=== PATIENT | female | born 1960 | race Caucasian/White ===

== ENCOUNTER 2020-10-12 09:43 | Observation (INO) ==
--- NOTE | 2020-10-12 10:16 | Emergency Department Note ---
History of Present Illness General Chief complaint: Illness Stated complaint: chest pressure, down arms, legs, pain down legs, Time Seen by Provider: 10/12/20 09:53 Source: patient History of Present Illness Provider complaint: Chest pain Onset (ago): day(s) 8 Location: chest Radiation: neck and extremity (Both arms) Pain Consistency: + intermittent Maximum Pain Intensity: 5 Quality: + burning (And heavy) Relieved By: + none Exacerbated By: + other (Going to bed) Associated symptoms: + nausea/vomiting (Nausea no vomiting) and + weakness (Generalized); no cough, no fever/chills and no shortness of breath This is a 60-year-old female who presents with chest discomfort intermittently for the past 8 days. She states that she gets it when she goes to bed and it wakes her up from sleep throughout the night. Last night she had it starting at around midnight when she went to bed and it was intermittent all night until about 7:00. She no longer has any chest discomfort. She describes it as a burning and heaviness in her chest which radiates to her neck as well as both of her arms. It is associated with nausea and generalized weakness but no shortness of breath. She does state that she went to [facility] where they did an EKG and blood work and chest x-ray. They told her that it was probably anxiety. She was also seen here 2 days ago and had a similar work-up and was told that it was probably related to her stomach. She states that she has been feeling weak for the past 8 days and has been mostly bedridden. She states that over the past 2 days she has noticed pain to her left calf and thigh without any appreciable swelling. She did state that she fell 2 weeks ago and injured her metz but only developed this pain 2 days ago. She states her chest pain is not related to exertion. When she climbs a flight of stairs she will get slightly short of breath but have no chest discomfort. She occasionally gets it during the day but it is mostly at nighttime when she goes to bed. She denies any cardiac history other than a history of PVCs. She is currently on beta-blockers for this. She also has hypertension. Her parents both had heart problems but in their 70s. She stated she tried to follow-up with her doctor but only was able to talk to her on the phone and told her to go to the ER. Home Medications Medication Instructions Recorded Confirmed Type acebutolol 200 mg PO BID 01/19/19 10/12/20 History aspirin [Aspir-81] 81 mg PO HS 10/10/20 10/12/20 History hydroxyzine HCl 10 mg PO TID PRN 10/10/20 10/12/20 History lisinopril 10 mg PO HS 10/10/20 10/12/20 History omeprazole 40 mg PO BID #30 cap 10/10/20 10/12/20 Rx sertraline 50 mg PO HS 10/10/20 10/12/20 History cholecalciferol (vitamin D3) 0 mcg PO DAILY 10/12/20 10/12/20 History [Vitamin D3] elderberry fruit [Elderberry] 200 mg PO DAILY 10/12/20 10/12/20 History Allergies Allergy/AdvReac Type Severity Reaction Status Date / Time metoprolol Allergy Intermediate THROAT Verified 10/12/20 10:56 TIGHT, ITCHY HIVES. moxifloxacin [From Avelox] AdvReac Severe Throat Unverified 10/12/20 10:56 tight, itchy, hives Past Med/Surg History Medical History HTN (hypertension) Hyperlipidemia Family History Other No significant family history Social History Smoking Status: Former smoker Tobacco Type: Cigarettes marital status: Single Current Living Situation: Alone current occupational status: employed Feels Safe at Home: Yes Review of Systems See HPI for pertinent positives & negatives. and A total of 10 systems reviewed and were otherwise negative Physical Exam Vital Signs Vital Signs - 24 hr 10/12/20 09:52 10/12/20 10:50 10/12/20 11:30 Temperature 36.6 C Temperature Source Temporal Artery Scan Pulse Rate 55 L Pulse Rate [Apical] 53 L 61 Respiratory Rate 18 18 16 Respiratory Depth Normal Blood Pressure 160/102 H Blood Pressure [Right Arm] 194/121 H Blood Pressure Mean 121 Blood Pressure Mean [Right Arm] 145 Pulse Oximetry 99 96 95 Oxygen Delivery Method Room Air Room Air Room Air Sepsis Recent Fever Within 48 Hours No Sepsis New/Unexplained Change in Mental Status N/A Sepsis Action Taken by Nursing No Action Required 10/12/20 12:24 10/12/20 14:44 Temperature Temperature Source Pulse Rate Pulse Rate [Apical] 63 57 L Respiratory Rate 16 16 Respiratory Depth Blood Pressure Blood Pressure [Right Arm] 176/100 H 135/89 Blood Pressure Mean Blood Pressure Mean [Right Arm] 125 104 Pulse Oximetry 98 98 Oxygen Delivery Method Room Air Room Air Sepsis Recent Fever Within 48 Hours Sepsis New/Unexplained Change in Mental Status Sepsis Action Taken by Nursing Constitutional: Vital signs reviewed. Eyes: Pupils are equal round reactive to light. Conjunctiva are noninjected. ENT: Pharynx is clear without erythema or exudate. Mucous membranes are moist. Neck supple without meningeal signs. Respiratory: Clear to auscultation bilaterally. Breath sounds are equal bilaterally. Cardiovascular: Regular rate and rhythm. No rubs or gallops. GI: Soft, nondistended and nontender. Bowel sounds are present. Musculoskeletal: No peripheral edema. Mild left calf tenderness. Normal distal pulses. No bony tenderness to the left lower extremity. Integumentary: No cyanosis. or jaundice. Neurological: The patient is awake and alert. No focal deficits. Psychiatric: Very anxious. Course Administered Medications Discontinued Medications Ioversol (Optiray 320 125ml) 120 ml IV ONCE ONE Stop: 10/12/20 12:00 Last Admin: 10/12/20 12:00 Dose: 120 ml Documented by: [id number] Medical Decision Making Differential Diagnosis Unstable angina, [place], pulmonary embolism, DVT, GERD, anxiety Medical Records Attestation: I reviewed the patient's medical records. I did perform a limited focused review of portions of the patient's old chart on the electronic medical record. The patient was seen here 2 days ago for the same symptoms. She had an EKG, x-ray and lab work which were unremarkable. The physician who saw her felt that this was likely related to a GI issue as she has recently been on a course of Augmentin. Home Medications Current Medication List: was personally reviewed by me Laboratory Data Attestation: I reviewed the patient's lab results. Result diagrams: 10/12/20 10:57 10/12/20 10:57 Lab Results 10/12/20 10/12/20 10/12/20 Range/Units 10:57 10:57 10:57 WBC 5.48 (4.8-10.8) K/uL RBC 4.61 (4.2-5.4) M/uL Hgb 14.3 (12.0-16.0) g/dL Hct 42.0 (37-47) % MCV 91.1 (80-100) fL MCH 31.0 (25-34) pg MCHC 34.0 (32-36) g/dL RDW Std Deviation 42.3 (36.4-46.3) fL RDW Coeff of Vianca 12.6 (11.5-14.5) % Plt Count 225 (130-400) K/uL MPV 9.8 (7.4-10.4) fL Immature Gran % (Auto) 0.2 % Neut % (Auto) 71.5 % Lymph % (Auto) 21.2 % [place] % (Auto) 6.0 % Eos % (Auto) 0.7 % Baso % (Auto) 0.4 % Neut # (Auto) 3.92 (1.4-6.5) K/uL Lymph # (Auto) 1.16 L (1.2-3.4) K/uL [place] # (Auto) 0.33 (0.11-0.59) K/uL Eos # (Auto) 0.04 (0-0.5) K/uL Baso # (Auto) 0.02 (0-0.2) K/uL Immature Gran # (Auto) 0.01 (0.00-0.02) K/uL PT 10.1 (9.0-12.0) Seconds INR 1.0 (0.9-1.1) APTT 23.6 (21.0-31.0) Seconds PTT Ratio 0.9 D-Dimer 850 H* (0-500) ug/L FEU Sodium 141 (136-145) mmol/L Potassium 3.6 (3.5-5.1) mmol/L Chloride 109 H (98-107) mmol/L Carbon Dioxide 27 (21-32) mmol/L Anion Gap 5.0 (3-11) BUN 9 (7-18) mg/dl Creatinine 0.75 (0.6-1.2) mg/dl Est Cr Clr Drug Dosing 95.0 ml/min Est GFR ( Amer) 101.1 Est GFR (Non-Af Amer) 87.2 BUN/Creatinine Ratio 11.5 (10-20) Glucose 103 H (70-99) mg/dl Calcium 9.4 (8.5-10.1) mg/dl Total Bilirubin 0.6 (0.2-1) mg/dl AST 8 L (15-37) U/L ALT 24 (12-78) U/L Alkaline Phosphatase 88 (45-117) U/L Troponin I < 0.015 (0-0.045) ng/ml Total Protein 7.1 (6.4-8.2) gm/dl Albumin 4.0 (3.4-5.0) gm/dl Globulin 3.1 (2.5-4.0) gm/dl Albumin/Globulin Ratio 1.3 (0.9-2) Lipase 102 (73-393) U/L COVID-19 Eval Order 10/12/20 Range/Units 15:00 WBC (4.8-10.8) K/uL RBC (4.2-5.4) M/uL Hgb (12.0-16.0) g/dL Hct (37-47) % MCV (80-100) fL MCH (25-34) pg MCHC (32-36) g/dL RDW Std Deviation (36.4-46.3) fL RDW Coeff of Vianca (11.5-14.5) % Plt Count (130-400) K/uL MPV (7.4-10.4) fL Immature Gran % (Auto) % Neut % (Auto) % Lymph % (Auto) % [place] % (Auto) % Eos % (Auto) % Baso % (Auto) % Neut # (Auto) (1.4-6.5) K/uL Lymph # (Auto) (1.2-3.4) K/uL [place] # (Auto) (0.11-0.59) K/uL Eos # (Auto) (0-0.5) K/uL Baso # (Auto) (0-0.2) K/uL Immature Gran # (Auto) (0.00-0.02) K/uL PT (9.0-12.0) Seconds INR (0.9-1.1) APTT (21.0-31.0) Seconds PTT Ratio D-Dimer (0-500) ug/L FEU Sodium (136-145) mmol/L Potassium (3.5-5.1) mmol/L Chloride (98-107) mmol/L Carbon Dioxide (21-32) mmol/L Anion Gap (3-11) BUN (7-18) mg/dl Creatinine (0.6-1.2) mg/dl Est Cr Clr Drug Dosing ml/min Est GFR ( Amer) Est GFR (Non-Af Amer) BUN/Creatinine Ratio (10-20) Glucose (70-99) mg/dl Calcium (8.5-10.1) mg/dl Total Bilirubin (0.2-1) mg/dl AST (15-37) U/L ALT (12-78) U/L Alkaline Phosphatase (45-117) U/L Troponin I (0-0.045) ng/ml Total Protein (6.4-8.2) gm/dl Albumin (3.4-5.0) gm/dl Globulin (2.5-4.0) gm/dl Albumin/Globulin Ratio (0.9-2) Lipase (73-393) U/L COVID-19 Eval Order Covid19 [facility]Now [facility] Imaging Data Radiologist's Impression: CT angio chest PE protocol CT DOSE: 657.37 mGy.cm HISTORY: 60 years-old Female with cp eval for PE. Acute chest pain with shortness of breath TECHNIQUE: Multiple CTA images of the chest were obtained after the intravenous administration of 120 ml Optiray 320. Coronal and sagittal MIPS were obtained from the axial data set and were submitted for review. All measurements were obtained according to NASCET criteria. A dose lowering technique was utilized adhering to the principles of ALARA. COMPARISON: Chest radiograph 10/10/2020 FINDINGS: CTA: Moderate cardiomegaly. Mild coronary artery calcifications. No thoracic aortic aneurysm or dissection. There is patency of the imaged great vessels. The pulmonary artery is opacified to level of the subsegmental branches and demonstrates no filling defects to suggest thromboembolic disease. CT CHEST: Unremarkable thyroid. There is no adenopathy. No pneumothorax, pleural effusion, airspace consolidation or overt pulmonary edema. There are no suspicious pulmonary nodules or masses. Central airways are patent. No acute process of the imaged upper abdomen. Mild hepatic steatosis. Unremarkable soft tissues. There is no acute fracture. No suspicious bone lesion. IMPRESSION: 1. No acute intrathoracic abnormality, specifically there are no pulmonary emboli. 2. Cardiomegaly. ACT 112: Negative or not required by law. The above report was generated using voice recognition software. It may contain grammatical, syntax or spelling errors. Electronically signed by: Rafael Duncan M.D. 10/12/2020 12:16 PM Dictated: 10/12/20 1210 Transcribed: 10/12/20 1210 LEFT LOWER EXTREMITY VENOUS DOPPLER HISTORY: Left leg pain eval for dvt COMPARISON STUDY: None. FINDINGS: There is normal compressibility, flow, and augmentation within the left lower extremity deep venous system. IMPRESSION: No DVT within the left lower extremity. ACT 112: Negative or not required by law. Electronically signed by: Anand Crowe M.D. 10/12/2020 12:31 PM Dictated: 10/12/20 1231 Transcribed: 10/12/20 123 ECG Data Attestation: I personally reviewed and interpreted this ECG as follows: Indication: + chest pain Rate (beats per minute): 51 Rhythm: + sinus bradycardia ECG [place]: + Normal ECG ST segments: no ST elevation ECG Findings: + Other (Some mild flattening of T waves); no PVCs Comparison ECG Date: from (October 10, 2020) Change: no significant change MDM Narrative I did evaluate the patient as noted above. The patient is presenting with chest discomfort which she has had intermittently for the past 8 days and seems to mostly get at night when she is lying down. She also noted that she has been rather sedentary for the past 8 days and noticed 2 days ago that her left leg was bothering her in her calf and thigh. She is currently not having any chest pain. IV access was established. I did place an order for continuous cardiac monitoring. The monitor showed sinus bradycardia at a rate of 56 bpm. I did order and personally review the patient's 12-lead EKG as described above. She has no acute ischemic changes. I did order and review the patient's blood work as noted in the electronic medical record. CBC and electrolytes are unremarkable. Troponin is negative. D-dimer is elevated. I did order a Doppler ultrasound of the left lower extremity and CT angiogram of the chest. I did review the images myself as well as the radiology report as described above. There is no evidence of DVT or PE. I did discuss the test results with the patient. I did recommend cardiac stress testing. I did talk to Dr.Kocher jeanette live who agreed to do a stress test today. She was sent for exercise stress test which cardiology reported as abnormal. I did discuss this with the patient. She will be hospitalized for further care and evaluation and cardiac catheterization tomorrow. Impression & Plan Chest pain, Abnormal cardiovascular stress test, Left leg pain Discharge Plan Visit Data Chief Complaint: Illness Stated Complaint: chest pressure, down arms, legs, pain down legs, ED Provider: Eugene Rachel Prescriptions Prescriptions: No Action hydroxyzine HCl 10 mg tablet 10 mg PO TID PRN (Reason: Anxiety) RF: 0 aspirin [Aspir-81] 81 mg Tablet,Delayed Release (Dr/Ec) 81 mg PO HS RF: 0 lisinopril 10 mg tablet 10 mg PO HS RF: 0 sertraline 50 mg Tablet 50 mg PO HS RF: 0 omeprazole 40 mg capsule,delayed release(DR/EC) 40 mg PO BID Qty: 30 RF: 0 acebutolol 200 mg Capsule 200 mg PO BID RF: 0 cholecalciferol (vitamin D3) [Vitamin D3] 10 mcg (400 unit) Capsule 0 mcg PO DAILY RF: 0 Elderberry 200 mg Capsule 200 mg PO DAILY RF: 0
[2020-10-12 11:03] LABS: Basophils # (auto) 0.02 K/uL (0-0.2); Basophils % (auto) 0.4 %; Eosinophils # (auto) 0.04 K/uL (0-0.5); Eosinophils % (auto) 0.7 %; Hemoglobin 14.3 g/dL (12.0-16.0); Immature Granulocytes # (auto) 0.01 K/uL (0.00-0.02); Immature Granulocytes % (auto) 0.2 %; Lymphocytes # (auto) 1.16 K/uL (1.2-3.4); Lymphocytes % (auto) 21.2 %; Mean Corpuscular Volume 91.1 fL (80-100); Mean Platelet Volume 9.8 fL (7.4-10.4); Monocytes # (auto) 0.33 K/uL (0.11-0.59); Neutrophils # (auto) 3.92 K/uL (1.4-6.5); Neutrophils % (auto) 71.5 %; Platelet Count 225 K/uL (130-400); RDW Coefficient of Variation 12.6 % (11.5-14.5); RDW Standard Deviation 42.3 fL (36.4-46.3); Red Blood Count 4.61 M/uL (4.2-5.4); White Blood Count 5.48 K/uL (4.8-10.8)
[2020-10-12 11:23] LABS: Alanine Aminotransferase 24 U/L (12-78); Aspartate Aminotransferase 8 U/L (15-37); BUN Creatinine Ratio 11.5 (10-20); Blood Urea Nitrogen 9 mg/dl (7-18); Calcium 9.4 mg/dl (8.5-10.1); Carbon Dioxide 27 mmol/L (21-32); Chloride 109 mmol/L (98-107); Est GFR (African American) 101.1; Est GFR (Non-African American) 87.2; Glucose 103 mg/dl (70-99); Lipase 102 U/L (73-393); Partial Thromboplastin Ratio 0.9; Partial Thromboplastin Time 23.6 Seconds (21.0-31.0); Potassium 3.6 mmol/L (3.5-5.1); Prothrombin Time 10.1 Seconds (9.0-12.0); Sodium 141 mmol/L (136-145)
[2020-10-12 11:28] LABS: Albumin Globulin Ratio 1.3 (0.9-2); Alkaline Phosphatase 88 U/L (45-117); Bilirubin,Total 0.6 mg/dl (0.2-1); Globulin 3.1 gm/dl (2.5-4.0); Total Protein 7.1 gm/dl (6.4-8.2); Troponin I < 0.015 ng/ml (0-0.045)
[2020-10-12 11:31] LABS: D Dimer 850 ug/L FEU (0-500)
[2020-10-12] MEDS ORDERED: OPTIRAY 320 125ml IV ONE (11:59)
--- NOTE | 2020-10-12 12:17 | CT Scan Report ---
CT angio chest PE protocol CT DOSE: 657.37 mGy.cm HISTORY: 60 years-old Female with cp eval for PE. Acute chest pain with shortness of breath TECHNIQUE: Multiple CTA images of the chest were obtained after the intravenous administration of 120 ml Optiray 320. Coronal and sagittal MIPS were obtained from the axial data set and were submitted for review. All measurements were obtained according to NASCET criteria. A dose lowering technique w as utilized adhering to the principles of ALARA. COMPARISON: Chest radiograph 10/10/2020 FINDINGS: CTA: Moderate cardiomegaly. Mild coronary artery calcifications. No thoracic aortic aneurysm or dissection . There is patency of the imaged great vessels. The pulmonary artery is opacified to level of the sub segmental branches and demonstrates no filling defects to suggest thromboembolic disease. CT CHEST: Unremarkable thyroid. There is no adenopathy. No pneumothorax, pleural effusion, airspace consolidati on or overt pulmonary edema. There are no suspicious pulmonary nodules or masses. Central airways are patent. No acute process of the imaged upper abdomen. Mild hepatic steatosis. Unremarkable soft tissues. Ther e is no acute fracture. No suspicious bone lesion. IMPRESSION: 1. No acute intrathoracic abnormality, specifically there are no pulmonary emboli. 2. Cardiomegaly. ACT 112: Negative or not required by law. The above report was generated using voice recognition software. It may contain grammatical, syntax o r spelling errors. Electronically signed by: Rafael Duncan M.D. 10/12/2020 12:16 PM
--- NOTE | 2020-10-12 12:32 | Ultrasound Report ---
LEFT LOWER EXTREMITY VENOUS DOPPLER HISTORY: Left leg pain eval for dvt COMPARISON STUDY: None. FINDINGS: There is normal compressibility, flow, and augmentation within the left lower extremity alo p venous system. IMPRESSION: No DVT within the left lower extremity. ACT 112: Negative or not required by law. Electronically signed by: Anand Crowe M.D. 10/12/2020 12:31 PM
--- NOTE | 2020-10-12 15:39 | XCELERA ---
[id number]
--- NOTE | 2020-10-12 15:45 | History & Physical Report ---
Date of Service October 12, 2020 Assessment & Plan (1) Chest pain: Ongoing x 8 nights. I do not think this is ACS (even unstable angina) and defer starting Plavix or heparin gtt. She is chest pain free at present. She did have a positive stress echo with Dr. Li on 10/12, and she feels too concerned about the pain to go home tonight. - Ddx includes anginal pain, GERD, orthopnea, or ALOK. Angina seems possible given positive stress test, but unclear why nighttime would induce symptoms. GERD also possible given this happens while she is lying down and resolves with sitting up. Orthopnea possible, though no other signs/symptoms of volume overload. ALOK also seems possible, and possibly hypoxemia & hypercapnia could cause neurologic symptoms such as tingling of the arms/legs. - Continue home ASA - Plan for left heart cath tomorrow with cardiology; discussed with Dr. Li. - NPO @ midnight - Monitor on telemetry - Double home PPI to PO BID as evening dose of PPI may be beneficial - Consider outpatient sleep study (2) HTN (hypertension): BP is 135/90 in the ED. - Continue home acebutolol & lisinopril (3) Anxiety: Not overly anxious on my interview today. - Continue home sertraline - Continue home hydroxyzine PRN (4) Hyperlipidemia: Not on statin at home. - Defer to cardiology on statin recommendations (5) DVT prophylaxis: SCDs - Low DVT risk per admission calculator History of Present Illness Primary Care Provider: Naomi Carroll 60yo F w/ hx of HTN and anxiety who presents with 8 days of nocturnal chest pain. She feels normal during the day and does not have exertional symptoms. She will go to bed and reports that the last 8 days she's woken up at approximately 2 - 4am with substernal chest pressure that radiates into the neck and into both arms. She reports that the pressure has also radiated down into her left leg a single time. With the pain, she also experiences lightheadedness, nausea, and weakness. No emesis. No notable LE swelling. She does report that she sometimes gets slightly short of breath with exertion, but none at rest. Once she sits up at the bedside for a few minutes, the pain gradually fades and is not present throughout the day. Allergies Allergy/AdvReac Type Severity Reaction Status Date / Time metoprolol Allergy Intermediate THROAT Verified 10/12/20 10:56 TIGHT, ITCHY HIVES. moxifloxacin [From Avelox] AdvReac Severe Throat Unverified 10/12/20 10:56 tight, itchy, hives Home Medications Medication Instructions Recorded Confirmed Type acebutolol 200 mg PO BID 01/19/19 10/12/20 History aspirin [Aspir-81] 81 mg PO HS 10/10/20 10/12/20 History hydroxyzine HCl 10 mg PO TID PRN 10/10/20 10/12/20 History lisinopril 10 mg PO HS 10/10/20 10/12/20 History omeprazole 40 mg PO BID #30 cap 10/10/20 10/12/20 Rx sertraline 50 mg PO HS 10/10/20 10/12/20 History cholecalciferol (vitamin D3) 0 mcg PO DAILY 10/12/20 10/12/20 History [Vitamin D3] elderberry fruit [Elderberry] 200 mg PO DAILY 10/12/20 10/12/20 History Past Med/Surg History Medical History Anxiety HTN (hypertension) Hyperlipidemia Family History Father Heart disease Mother Heart disease Social History Smoking Status: Former smoker Tobacco Type: Cigarettes Hx Alcohol Use: Yes Alcohol type: beer Hx Substance Use: No Preferred Language: Hungarian Communication Ability: Effective Barking Machine Feeder Required: No Beliefs That Will Affect Care: None marital status: Single Current Living Situation: Family Current Living Situation Comment: Lives w/daughter, Eugenio. Nestorugher, Krysten, lives nearby. current occupational status: employed Other Information That Helps Us Care for You: No Feels Safe at Home: Yes Safety Concerns: Feels Safe At This Time Assistive Devices: None Review of Systems Review of Systems: All systems reviewed & are unremarkable except as noted in HPI & below Physical Exam Constitutional: WD/WN, vitals as above Eyes: EOM intact bilaterally; no conjunctival abnormality ENMT: external ear and nose normal, oropharynx normal Neck: trachea midline, no thyromegaly normal visual inspection Respiratory: normal respiratory effort, lungs clear to auscultation no respiratory distress Cardiovascular: RRR, no murmur, no edema Gastrointestinal (Abdomen): Inspection/Auscultation: abdomen normal to inspection; abdomen not distended Musculoskeletal: no cyanosis or clubbing, extremities motor strength 5/5 Skin: no rashes, warm and dry Neurologic: moves all extremities and awake Psychiatric: Orientation: alert, oriented to person and cooperative Results & Data Results & Data ([facility]) Vital Signs (Past 12 Hours) Vital Signs Temp Pulse Pulse Resp BP BP Pulse Ox 10/12/20 14:44 57 L 16 135/89 98 10/12/20 12:24 63 16 176/100 H 98 10/12/20 11:30 61 16 95 10/12/20 10:50 53 L 18 194/121 H 96 10/12/20 09:52 36.6 C 55 L 18 160/102 H 99 Code Status & VTE Plan VTE Prophylaxis Plan VTE Prophylaxis will be ordered: Yes PG Care Time/CCT Total # of Minutes Spent Total Time Spent with Patient: Total time spent is greater than 50% in coordination of care (as documented) at patient's floor/unit and/or counseling patient: Coding Level of Care Code 13087 OBS Care - Level 3 Diagnoses Chest pain R07.9 HTN (hypertension) I10 Anxiety F41.9 Hyperlipidemia E78.5 DVT prophylaxis Z29.9
--- NOTE | 2020-10-12 16:54 | Electrocardiogram Report ---
Test Reason : Blood Pressure : / mmHG Vent. Rate : 051 BPM Atrial Rate : 051 BPM P-R Int : 156 ms QRS Dur : 082 ms QT Int : 416 ms P-R-T Axes : 049 020 029 degrees QTc Int : 383 ms Sinus bradycardia Nonspecific T wave abnormality Abnormal ECG When compared with ECG of 10-OCT-2020 07:01, No significant change was found Confirmed by Dwight Li ([id number]) on 10/12/2020 4:53:41 PM Referred By: REFERRED SELF Confirmed By:Irving Li
[2020-10-12] MEDS ORDERED: ACETAMINOPHEN 325 MG TAB PO PRN (18:00)
[2020-10-12] MEDS ORDERED: hydrOXYzine HCl 10 MG TAB PO PRN (18:00)
[2020-10-12] MEDS ORDERED: ONDANSETRON INJ 2 MG/ML 2 ML VIAL IV PRN (18:00)
[2020-10-12] MEDS: PANTOprazole 40 MG TAB PO SCH (20:29)
[2020-10-12] MEDS ORDERED: SERTRALINE HCL 50 MG TABLET PO SCH (21:00)
[2020-10-12] MEDS ORDERED: ASPIRIN 81 MG ECTAB PO SCH (21:00)
[2020-10-12] MEDS ORDERED: lisinopril 10 MG TAB PO SCH (21:00)
[2020-10-13 06:12] LABS: Hematocrit (blood only) 40.2 % (37-47); Hemoglobin 13.6 g/dL (12.0-16.0); Mean Corpuscular Hemoglobin 31.1 pg (25-34); Mean Corpuscular Hgb Conc 33.8 g/dL (32-36); Mean Corpuscular Volume 91.8 fL (80-100); Mean Platelet Volume 9.9 fL (7.4-10.4); Platelet Count 205 K/uL (130-400); RDW Coefficient of Variation 12.7 % (11.5-14.5); Red Blood Count 4.38 M/uL (4.2-5.4); White Blood Count 5.41 K/uL (4.8-10.8)
[2020-10-13 06:41] LABS: BUN Creatinine Ratio 15.6 (10-20); Calcium 9.3 mg/dl (8.5-10.1); Creatinine Clr Calc Pharmacy 96.3 ml/min; Est GFR (African American) 102.8; Est GFR (Non-African American) 88.7; Magnesium 2.4 mg/dl (1.8-2.4); Potassium 3.4 mmol/L (3.5-5.1)
[2020-10-13] MEDS: PANTOprazole 40 MG TAB PO SCH (07:55)
--- NOTE | 2020-10-13 09:03 | Pre Anesthesia Assessment ---
Date of Service October 13, 2020 Pre Sedation Assessment Vital Signs Temp Pulse Pulse Pulse Resp BP BP 10/13/20 08:44 80 10/13/20 07:47 36.8 C 59 L 18 112/70 10/13/20 04:29 36.8 C 54 L 16 114/70 10/12/20 23:14 63 10/12/20 22:26 37.1 C 58 L 16 112/67 10/12/20 18:14 60 10/12/20 18:00 36.7 C 57 L 16 158/100 H 10/12/20 16:59 52 L 20 131/87 10/12/20 15:56 65 18 145/91 H 10/12/20 14:44 57 L 16 135/89 10/12/20 12:24 63 16 176/100 H 10/12/20 11:30 61 16 10/12/20 10:50 53 L 18 194/121 H 10/12/20 09:52 36.6 C 55 L 18 160/102 H Pulse Ox 10/13/20 08:44 10/13/20 07:47 98 10/13/20 04:29 96 10/12/20 23:14 10/12/20 22:26 96 10/12/20 18:14 10/12/20 18:00 98 10/12/20 16:59 95 10/12/20 15:56 95 10/12/20 14:44 98 10/12/20 12:24 98 10/12/20 11:30 95 10/12/20 10:50 96 10/12/20 09:52 99 Cardiovascular + regular rate and + regular rhythm Respiratory + respiratory effort normal Pre-Sedation Airway Assessment Smoking Status: Former smoker Hx Sleep Apnea: No Hx Difficult Intubation: No Short, Thick Neck: No Thyromental Distance: > or= 3.5 Finger Breadths Oral Cavity: + Dentures Mallampati Class: III ASA: ASA3 NPO Status Date of Last Intake of Fluids: 10/12/20 Time of Last Intake of Fluids: 20:00 Date of Last Intake of Solid Food: 10/12/20 Time of Last Intake of Solid Foods: 20:00 Procedure Planning Contraindications for Sedation: none Current Medications Reviewed: Yes Notes The planned sedation has been discussed with the patient. Informed Consent was obtained. I have identified the patient, determined the appropriateness of sedation and have assessed the patient immediately prior to the procedure. All medicine(s) and interventions are by my order.
[2020-10-13] MEDS ORDERED: niCARdipine HCL INJ 2.5 MG/ML 10 ML AMP ONE (09:12)
[2020-10-13] MEDS ORDERED: HEPARIN (PORCINE) 1000 UNIT/ML 10 ML (CATH LAB USE ONLY) ONE (09:13)
[2020-10-13] MEDS ORDERED: MIDAZOLAM HCL 1 MG/ML 2ML VIAL ONE (09:13)
[2020-10-13] MEDS ORDERED: NITROGLYCERIN/D5W 100MCG/ML 20ML SYR ONE (09:13)
[2020-10-13] MEDS ORDERED: fentaNYL citrate 100 MCG/2 ML VIAL ONE (09:13)
--- NOTE | 2020-10-13 09:46 | Post Anesthesia Assessment ---
Date of Service October 13, 2020 Post Sedation Assessment Vital Signs Temp Pulse Pulse Pulse Resp BP BP 10/13/20 08:44 80 10/13/20 07:47 36.8 C 59 L 18 112/70 10/13/20 04:29 36.8 C 54 L 16 114/70 10/12/20 23:14 63 10/12/20 22:26 37.1 C 58 L 16 112/67 10/12/20 18:14 60 10/12/20 18:00 36.7 C 57 L 16 158/100 H 10/12/20 16:59 52 L 20 131/87 10/12/20 15:56 65 18 145/91 H 10/12/20 14:44 57 L 16 135/89 10/12/20 12:24 63 16 176/100 H 10/12/20 11:30 61 16 10/12/20 10:50 53 L 18 194/121 H 10/12/20 09:52 36.6 C 55 L 18 160/102 H Pulse Ox 10/13/20 08:44 10/13/20 07:47 98 10/13/20 04:29 96 10/12/20 23:14 10/12/20 22:26 96 10/12/20 18:14 10/12/20 18:00 98 10/12/20 16:59 95 10/12/20 15:56 95 10/12/20 14:44 98 10/12/20 12:24 98 10/12/20 11:30 95 10/12/20 10:50 96 10/12/20 09:52 99 Recovery Score Activity: Moves 4 extremities Respiration: Deep Breath/Cough Circulation: +/-20% PreAnes Value Consciousness: Fully Awake Oxygen Saturation: > 92% On Room Air Discharge Sedation Level of Care: Fast Track Phase II Post Sedation Plan On clinical assessment, the patient appears to have tolerated the sedation without complications. Patient is recovering as anticipated. Patient will continue to be monitored by nursing and may be discharged when sedation discharge criteria are met per below protocol. Upon Completions of procedure up to 15 minutes continue every 5 minute vital signs and the P.A.R. score; then discharge to a Phase I or Fast Track to Phase II per the following guidelines: * Discharge Patient to appropriate Phase II area if PAR is 8 or greater or return to pre- procedure baseline. The post - procedure orders will be as directed. * If PAR score is less than 8 or not return to pre-procedure baseline then patient will follow Phase I monitoring till PAR is reached for Phase II. The Phase I may be done in procedure room or may call to secure a Phase I area. * If naloxone or flumazenil are used for reversal, hold in Phase I for continued monitoring from when last reversal dose was given for a minimum of 60 minutes or longer pending the nurse and/or physician discretion of patient condition before discharge to Phase II. Please call the Sedation Physician to re-evaluate and complete post-note for discharge to Phase II area. Do NOT discharge from procedure sedation or Phase 1 until post- sedation evaluation note is complete by procedure /sedation MD Sedation Discharge Instructions to be given to the patient at discharge to home.
--- NOTE | 2020-10-13 09:46 | Cardiac Catheterization ---
[facility] Data: Insole Filler Cardiac Status Clinical evaluation leading to the procedure CAD Presenation: Positive Stress Test Diagnostic Physicians Name: Dwight Li MD Closure Device Recommendations: Medical Therapy and/or Counseling Cardiac Cath Procedure Full Procedure Date October 13, 2020 Pre-Procedure Diagnosis Pre-Procedure Diagnosis: Positive Stress Test AUC Score AUC Score: 7 Post-Procedure Diagnosis Post-Procedure Diagnosis: Mild CAD Procedure(s) Performed Procedure(s) Performed: Coronary Angiography, Left Heart Cath and Right Heart Cath Pathology Technologist Dwight Li MD Field Service Analyst(s) none Estimated Blood Loss Estimated Blood Loss: 7cc Medication(s) Medication(s): Fentanyl, Heparin, Lidocaine 1%, Nicardipine, Nitroglycerin and Versed Summary of Findings Procedure performed: Left heart catheterization, right heart catheterization, selective coronary angiography Staff para educator: Dwight Li MD Indication: The patient is a 60-year-old woman with a history of chest discomfort and dyspnea on exertion. She underwent exercise treadmill testing yesterday with reproduction of dyspnea and abnormal echocardiographic images. Procedure detail: The patient was informed the risks benefits and alternatives to the intended procedure. She understood which proceed. She was taken to the cardiac catheterization suite in a fasting state. Conscious sedation was administered per protocol the patient was monitored electrocardiographically throughout today's procedure. The right antecubital area was accessed using sterile technique. Sheath was placed over guidewire this site used facilitate passage of balloon tipped catheter for pressure measurements in the right ventricle, right atrium, pulmonary artery and pulmonary capillary wedge position. Thermodilution cardiac indices were also obtained prior to removal of this catheter. The sheath was subsequently removed and hemostasis achieved at this site using manual pressure. The area over the right radial artery was anesthetized using subcutaneous menstruation lidocaine solution. The right radial artery was subsequently accessed using Seldinger technique and sheath was placed over guidewire at this site. The sheath was used facilitate passage of the cardiac catheters for selective coronary angiography and left heart catheterization. At the conclusion of the procedure the catheter and sheath were removed. Hemostasis achieved at the access site using manual pressure. The patient tolerated procedure well. There were no immediate complications. Equipment used: Six Lao balloon tipped PA catheter Five Lao tiger 4 Five Lao 3DRC Findings Coronary angiography Left main: Left main coronary artery is normal in size and caliber. It trifurcate into the left anterior descending, left circumflex and a ramus intermedius branch. There is no significant disease in this distribution. Left anterior descending: Left anterior descending was a normal sized artery. It produced a medium size 1st diagonal and several additional smaller diagonal branches. There was approximately 70% discrete stenosis in the midportion of the 1st diagonal. There was some luminal regularities and perhaps 20% stenosis of the LAD just distal to the 1st diagonal branch. No other obstructive lesions in this distribution Ramus intermedius. The ramus intermedius was a medium size vessel without obstructive disease Left circumflex: Left circumflex was a nondominant vessel. It produced a single large OM system. There were luminal irregularities but no discrete lesions in this vessel. Right coronary artery: The right coronary artery was a normal-sized dominant vessel. Had approximately 20% stenosis in its midportion. There were no other obstructive lesions. Thermodilution cardiac output 5.1 liters/minute with an index of 2.49 Pily cardiac output 3.67 liters/minute with an index of 1.79 Impression: Right dominant coronary system Obstructive disease involving the mid 1st diagonal branch Normal intracardiac and intrapulmonary pressures No evidence of aortic stenosis Plan: Medical management aggressive risk factor modification for branch vessel disease Hemodynamics Rest Ao:: 93/60 mm of mercury Final Ao: 125/73 mm of mercury LV: 110/1 mm of mercury, left ventricular end-diastolic pressure 5 mm of mercury RA: Mean pressure was 3 mm of mercury RV: 23/1 mm Hg PA: 24/1 mm of mercury PW: 2 mm of mercury Recommendations Recommendations: Medical Therapy and/or Counseling Specimens Specimens: None Radiation Exposure (mGy) One thousand thirty-seven Contrast (mls) Forty Procedural Complication(s) None Disposition PCU I attest to the content of the Intraoperative Record and any orders documented therein. Any exceptions are noted below. [facility] Card Cath Procedure Codes Cardiac Catheterization Procedure 1: Cardiovascular Cath Procedures: 97251 Coronaries & LHC (+/-LV) & RHC Moderate Sedation Procedure 1: Sedation/Anesthesia: 24904 Mod Sedation by the same physician;Init15 Min Child Age 5 & Up Procedure 2: Sedation/Anesthesia: 77318 Mod Sedation by the same physician;Init15 Min Child Age 5 & Up PG Care Time/CCT Total # of Minutes Spent Total Time Spent with Patient: Total time spent is greater than 50% in coordination of care (as documented) at patient's floor/unit and/or counseling patient:
[2020-10-13 09:58] LABS: iSTAT Arterial Blood Gas HCO3 28 meg/L (19-24); iSTAT Arterial Blood Gas pCO2 45 mmHg (35-46); iSTAT Arterial Blood Gas pO2 39 mmHg (80-95); iSTAT Carbon Dioxide 29 mmol/L (24-31); iSTAT Hematocrit 40 % (37-47); iSTAT Hemoglobin 13.6 g/dl (12.0-16.0); iSTAT Potassium 3.5 mmol/L (3.3-5.0); iSTAT Sodium 141 mmol/L (135-144)
[2020-10-13 09:58] LABS: iSTAT Arterial Blood Gas HCO3 29 meg/L (19-24); iSTAT Arterial Blood Gas pCO2 48 mmHg (35-46); iSTAT Arterial Blood Gas pH 7.39 (7.35-7.45); iSTAT Arterial Blood Gas pO2 214 mmHg (80-95); iSTAT Carbon Dioxide 30 mmol/L (24-31); iSTAT Hematocrit 39 % (37-47); iSTAT Hemoglobin 13.3 g/dl (12.0-16.0); iSTAT Potassium 3.5 mmol/L (3.3-5.0); iSTAT Sodium 140 mmol/L (135-144)
[2020-10-13] MEDS ORDERED: SODIUM CHLORIDE 0.9% 1000ML 1,000 ML IV SCH (10:00)
--- NOTE | 2020-10-13 11:46 | Cardiology Consultation ---
Date of Consultation October 13, 2020 Assessment & Plan (1) Chest pain: I do not believe her chest pain is related to coronary disease or an acute coronary syndrome. Even before her angiography she was having extended episodes without any elevation in her cardiac biomarkers. There is no evidence of an acute coronary syndrome on her angiography. It would seem reasonable to increase her dose of proton pump inhibitor. (2) Abnormal cardiovascular stress test: A poor augmentation seen with her stress testing was likely related to her poor heart rate response overall. She would likely benefit from reduction or possible limitation of her beta-alexus. This may improve her exercise tolerance. (3) Hyperlipidemia: Given the presence of coronary disease on her angiography she would benefit from initiation of statin therapy. I would recommend atorvastatin 80 mg daily. (4) PVCs (premature ventricular contractions): She has been on telemetry. She is not seem to have frequent PVCs. This was a fairly remote diagnosis. I think we can reduce her beta-blockade and attempt to improve her exercise tolerance. Would suggest reducing her current dose of acebutolol to 200 mg daily. (5) Coronary artery disease: She does have some branch vessel disease. I do not believe she is having symptoms related to this stenosis. As noted above initiating statin therapy and starting a daily aspirin, 81 mg seem like a reasonable 1st intervention. If she continues to have significant dyspnea on exertion or develops exertional chest discomfort we could institute antianginal therapy as well. History of Present Illness Reason for Consultation: Chest pain, abnormal stress test Requesting Physician: Kurt Attending Physician: Keegan Li History of Present Illness The patient is a 60-year-old woman with remote history of frequent PVCs on beta- alexus therapy who has been experiencing symptoms of nocturnal chest pain. She states that for approximately 2 weeks she has had some symptoms of chest discomfort primarily at nighttime. This is described as substernal in nature with some radiation to the arms and neck. The symptoms are fairly prolonged in nature and are present in the morning. However they do gradually resolved without any specific intervention. During the course of the day she has few symptoms. This chest discomfort is not generally exertional in nature. With activity she does have an element of dyspnea but did not report symptoms of exertional chest pain. No recent dizziness or lightheadedness. No fevers or chills. No sense of palpitation. No lower extremity edema. No overt orthopnea. She has been to the emergency room in our hospital on 2 occasions. She has visited an outside emergency room as well for the symptoms. There has been no objective signs of cardiac disease. Yesterday she underwent exercise echocardiography which was abnormal. The patient did have notable dyspnea during exercise but no chest pain. Based on the results of this test and ongoing symptoms she was kept overnight and underwent coronary angiography today. Allergies Allergy/AdvReac Type Severity Reaction Status Date / Time metoprolol Allergy Intermediate THROAT Verified 10/12/20 10:56 TIGHT, ITCHY HIVES. moxifloxacin [From Avelox] AdvReac Severe Throat Unverified 10/12/20 10:56 tight, itchy, hives Home Medications Medication Instructions Recorded Confirmed Type acebutolol 200 mg PO BID 01/19/19 10/12/20 History aspirin [Aspir-81] 81 mg PO HS 10/10/20 10/12/20 History hydroxyzine HCl 10 mg PO TID PRN 10/10/20 10/12/20 History lisinopril 10 mg PO HS 10/10/20 10/12/20 History omeprazole 40 mg PO BID #30 cap 10/10/20 10/12/20 Rx sertraline 50 mg PO HS 10/10/20 10/12/20 History cholecalciferol (vitamin D3) 0 mcg PO DAILY 10/12/20 10/12/20 History [Vitamin D3] elderberry fruit [Elderberry] 200 mg PO DAILY 10/12/20 10/12/20 History Patient History Medical History Anxiety HTN (hypertension) Hyperlipidemia Family History Father Heart disease Mother Heart disease Social History Smoking Status: Former smoker Tobacco Type: Cigarettes Hx Alcohol Use: Yes Alcohol type: beer Hx Substance Use: No Preferred Language: Scottish Communication Ability: Effective Flight Surgeon Required: No Beliefs That Will Affect Care: None marital status: Single Current Living Situation: Family Current Living Situation Comment: Lives w/daughter, Eugenio. Daugher, Krysten, lives nearby. current occupational status: employed Other Information That Helps Us Care for You: No Feels Safe at Home: Yes Safety Concerns: Feels Safe At This Time Assistive Devices: Glasses Review of Systems Review of Systems: All systems reviewed & are unremarkable except as noted in HPI & below No recent constitutional symptoms such as fevers or chills. Physical Exam Physical Exam: She is alert and oriented x3. Mood affect appear normal. She answered all questions appropriately. HEENT: Sclerae are anicteric. Pupils are equal and reactive to light and accommodation. Extraocular movements were intact. Neuro: Cranial nerves intact Neck: Examination of the submandibular region did not reveal any significant lymphadenopathy. Carotids are palpable bilaterally and free of bruits on auscultation. There was no evidence of jugular venous distention. The thyroid was not enlarged. Lungs: Lungs are clear to auscultation bilaterally. There are no rales wheezes or rhonchi. She has normal respiratory effort without use of accessory muscles. There is normal pulmonary excursion. Cardiac: The rhythm was regular. S1 and S2 were normal. There are no murmurs on examination. The PMI was not markedly displaced on palpation. Abdomen: The abdomen was soft and nontender. Extremities: Patient has bilateral radial pulses that are equal in intensity. There is no evidence cyanosis or clubbing. There was no evidence of significant peripheral edema bilaterally. Skin: There are no rashes noted on examination today. Results & Data ([facility]) Vital Signs (Past 12 Hours) Vital Signs Temp Pulse Pulse Pulse Resp BP BP 10/13/20 11:15 63 20 131/78 10/13/20 10:55 58 L 20 128/79 10/13/20 10:30 54 L 18 128/76 10/13/20 10:16 56 L 16 124/72 10/13/20 10:15 36.8 C 57 L 20 135/88 10/13/20 09:55 54 L 16 125/78 10/13/20 08:44 80 10/13/20 07:47 36.8 C 59 L 18 112/70 10/13/20 04:29 36.8 C 54 L 16 114/70 Pulse Ox 10/13/20 11:15 97 10/13/20 10:55 10/13/20 10:30 98 10/13/20 10:16 97 10/13/20 10:15 97 10/13/20 09:55 97 10/13/20 08:44 10/13/20 07:47 98 10/13/20 04:29 96 Laboratory Results Abnormal Lab Results 10/12/20 10/12/20 10/13/20 15:00 15:00 05:28 WBC 5.41 RBC 4.38 Hgb 13.6 POC Hgb Hct 40.2 POC Hct MCV 91.8 MCH 31.1 MCHC 33.8 RDW Std Deviation 43.0 RDW Coeff of Vianca 12.7 Plt Count 205 MPV 9.9 POC pH POC pCO2 POC pO2 POC HCO3 POC Total CO2 POC Base Excess POC ABG O2 Sat POC Sodium Sodium POC Potassium Potassium Chloride Carbon Dioxide Anion Gap BUN Creatinine Est Cr Clr Drug Dosing Est GFR ( Amer) Est GFR (Non-Af Amer) BUN/Creatinine Ratio Glucose Calcium Magnesium COVID[facility] Screen SARS-CoV-2, RNA, NAAT NEGATIVE 10/13/20 10/13/20 10/13/20 05:28 05:28 09:28 WBC RBC Hgb POC Hgb 13.6 Hct POC Hct 40 MCV MCH MCHC RDW Std Deviation RDW Coeff of Vianca Plt Count MPV POC pH 7.40 POC pCO2 45 POC pO2 39 L POC HCO3 28 H POC Total CO2 29 POC Base Excess 3.0 H POC ABG O2 Sat 73.0 L POC Sodium 141 Sodium 141 POC Potassium 3.5 Potassium 3.4 L Chloride 108 H Carbon Dioxide 28 Anion Gap 5.0 BUN 12 Creatinine 0.74 Est Cr Clr Drug Dosing 96.3 Est GFR ( Amer) 102.8 Est GFR (Non-Af Amer) 88.7 BUN/Creatinine Ratio 15.6 Glucose 91 Calcium 9.3 Magnesium 2.4 COVID-19 Eval Order Hepatitis C Ab Screen Neg SARS-CoV-2, RNA, NAAT 10/13/20 09:45 WBC RBC Hgb POC Hgb 13.3 Hct POC Hct 39 MCV MCH MCHC RDW Std Deviation RDW Coeff of Vianca Plt Count MPV POC pH 7.39 POC pCO2 48 H POC pO2 214 H POC HCO3 29 H POC Total CO2 30 POC Base Excess 4.0 H POC ABG O2 Sat 100.0 H POC Sodium 140 Sodium POC Potassium 3.5 Potassium Chloride Carbon Dioxide Anion Gap BUN Creatinine Est Cr Clr Drug Dosing Est GFR ( Amer) Est GFR (Non-Af Amer) BUN/Creatinine Ratio Glucose Calcium Magnesium COVID-19 Eval Order Hepatitis C Ab Screen SARS-CoV-2, RNA, NAAT Diagnostic Findings Stress echocardiogram performed yesterday revealed poor heart rate response to exercise and poor augmentation of the ventricle with exercise. No regional wall motion abnormalities. The remainder of the echocardiogram demonstrated preserved LV systolic function at rest with stage II diastolic dysfunction. No significant valvular abnormalities. Chest CTA performed on 10/12/2020 revealed coronary calcification but no aortic pathology or evidence of pulmonary embolus. Coronary angiography performed today revealed disease in the 1st diagonal branch. This is estimated at 70% midvessel stenosis. No other obstructive lesions. Cardiac outputs and intracardiac pressures as well as pulmonary pressures were all normal. PG Care Time/CCT Total # of Minutes Spent Total Time Spent with Patient: Total time spent is greater than 50% in coordination of care (as documented) at patient's floor/unit and/or counseling patient: Coding Level of Care Code 53873 Office/OBS Consult Lvl 4 Diagnoses Chest pain R07.9 Chest pain type: unspecified Abnormal cardiovascular stress test R94.39 Hyperlipidemia E78.5 PVCs (premature ventricular contractions) I49.3 Coronary artery disease I25.10 (1) Chest pain Chest pain type: unspecified Qualified Code(s): R07.9 - Chest pain, unspecified
--- NOTE | 2020-10-13 14:10 | Electrocardiogram Report ---
Test Reason : Blood Pressure : / mmHG Vent. Rate : 052 BPM Atrial Rate : 052 BPM P-R Int : 150 ms QRS Dur : 076 ms QT Int : 458 ms P-R-T Axes : 052 012 074 degrees QTc Int : 425 ms Sinus bradycardia Nonspecific ST and T wave abnormality Abnormal ECG When compared with ECG of 12-OCT-2020 10:55, No significant change was found Confirmed by Dwight Li ([id number]) on 10/13/2020 2:10:22 PM Referred By: REFERRED SELF Confirmed By:Irving Li
[2020-10-13] MEDS ORDERED: POTASSIUM CHLORIDE CRTAB 20 MEQ TABCR PO STA (14:41)
--- NOTE | 2020-10-13 16:56 | Ultrasound Report ---
ABDOMINAL ULTRASOUND, RIGHT UPPER QUADRANT HISTORY: RUQ abdominal pain x 7 days, r/o cholecystitis. COMPARISON: None. FINDINGS: Pancreas: The pancreatic tail is obscured by overlying bowel gas. The remaining portions of the pancr eas are within normal limits. Liver: The liver is echogenic consistent with fatty change. Gallbladder: No gallbladder wall thickening. No gallstones. CBD: 4 mm. Right kidney: No hydronephrosis. IMPRESSION: 1. Normal gallbladder. No gallstones. 2. Mild hepatic steatosis. ACT 112: Negative or not required by law. Electronically signed by: Anand Crowe M.D. 10/13/2020 4:54 PM
--- NOTE | 2020-10-13 17:57 | Discharge Summary ---
Date of Service date of admission - October 12, 2020 date of discharge - October 13, 2020 Admission HPI Per Admitting Provider 60yo F w/ hx of HTN and anxiety who presents with 8 days of nocturnal chest pain. She feels normal during the day and does not have exertional symptoms. She will go to bed and reports that the last 8 days she's woken up at approximately 2 - 4am with substernal chest pressure that radiates into the neck and into both arms. She reports that the pressure has also radiated down into her left leg a single time. With the pain, she also experiences lightheadedness, nausea, and weakness. No emesis. No notable LE swelling. She does report that she sometimes gets slightly short of breath with exertion, but none at rest. Once she sits up at the bedside for a few minutes, the pain gradually fades and is not present throughout the day. Principal Diagnosis chest pain Discharge Exam Constitutional well developed and well nourished; no acute distress and no altered mental status ENMT external ear and nose normal, oropharynx normal Respiratory normal respiratory effort, lungs clear to auscultation Cardiovascular Rate/Rhythm: regular rate and regular rhythm Heart Sounds: normal S1 and normal S2; no murmur Vessels: posterior tibial pulses present and dorsalis pedis pulses present; no JVD Extremities: no edema Gastrointestinal (Abdomen) Inspection/Auscultation: normal bowel sounds; abdomen not distended Percussion/Palpation: + abdomen tender (Minimal - epigastric region ) and abdomen soft; no guarding and no hepatosplenomegaly Skin right wrist without hematoma or ecchymoses Psychiatric A+Ox3, euthymic affect Discharge Data Allergies Allergy/AdvReac Type Severity Reaction Status Date / Time metoprolol Allergy Intermediate THROAT Verified 10/12/20 10:56 TIGHT, ITCHY HIVES. moxifloxacin [From Avelox] AdvReac Severe Throat Unverified 10/12/20 10:56 tight, itchy, hives Consultations [facility] Cardiology Procedures Performed Operation Date: 10/13/20 09:00 Actual Procedures p Cath, Right and Left Heart - Dwight Li MD s Cineradiography w/Routine Exam - Dwight Li MD Findings: Left main: Left main coronary artery is normal in size and caliber. It trifurcate into the left anterior descending, left circumflex and a ramus intermedius branch. There is no significant disease in this distribution. Left anterior descending: Left anterior descending was a normal sized artery. It produced a medium size 1st diagonal and several additional smaller diagonal branches. There was approximately 70% discrete stenosis in the midportion of the 1st diagonal. There was some luminal regularities and perhaps 20% stenosis of the LAD just distal to the 1st diagonal branch. No other obstructive lesions in this distribution Ramus intermedius. The ramus intermedius was a medium size vessel without obstructive disease Left circumflex: Left circumflex was a nondominant vessel. It produced a single large OM system. There were luminal irregularities but no discrete lesions in this vessel. Right coronary artery: The right coronary artery was a normal-sized dominant vessel. Had approximately 20% stenosis in its midportion. There were no other obstructive lesions. Ordered Studies 10/12/20 10:07 US venous doppler LE LT Stat - no DVT left leg. 10/12/20 11:31 CT angio chest PE protocol Stat IMPRESSION: 1. No acute intrathoracic abnormality, specifically there are no pulmonary emboli. 2. Cardiomegaly. 10/13/20 07:52 CL Cath Imgs for PACS use only Routine 10/13/20 12:09 US gallbladder Stat - no gallstones or other findings to suggest cholecystitis. Hospital Course (1) Chest pain: The patient had had a stress echocardiogram on 10/12/2020 notable for the following - * poor augmentation of LV function during exercise concerning for ischemia * poor heart rate response to exercise In light of her abnormal stress echocardiogram and recurrent episodes of chest pain she was admitted to the hospital for cardiac catheterization. This was performed by Dr Dwight Li on 10/13/2020. Results are noted above. During the hospital stay her troponin was negative. She did not have chest pain, but did complain of some very mild upper abdominal discomfort at rest. Although her cardiac catheterization showed a 70% lesion in a diagonal vessel it was not felt that her chest pain was cardiac in origin. Therefore, she underwent CTA chest which did not show any PE or other findings to explain her pain. Additionally, RUQ ultrasound did NOT show any biliary tract disease. Recommendations at discharge: 1. aspirin 81mg daily 2. lipitor 20mg daily 3. in the event her pain is upper GI tract in origin -- increase PPI to twice daily dosing 4. GI consultation post-d/c for consideration of EGD and/or other testing 5. she will continue beta alexus as previous (2) CAD (coronary artery disease): 70% lesion in the first diagonal. 20% lesion LAD. 20% lesion RCA. Other minor luminal irregularities also seen. In light of CAD as confirmed with cardiac catheterization -- aspirin once daily along with lipitor advised. Continue beta alexus. See discussion above in "Chest pain." (3) Essential (primary) hypertension: BPs were mildly elevated on day of admission but normalized without any specific intervention. Continue acebutolol and lisinopril. (4) Mixed hyperlipidemia: Patient stated her PCP had just checked her lipid profile recently and her LDL was >100. Therefore, in light of CAD as found on heart catheterization, she was advised to take lipitor 20mg daily. Of note - LFTs were normal during the stay. Total Time Total Time Spent Total Time Spent (In Minutes): 60 Total Time Includes: Examination of the Patient, Discharge Planning, Medication Reconciliation and Communication With Other Providers ([facility] cardiology ) Discharge Plan Discharge Items Patient Disposition: Home - Self-Care Reason For Visit: CHEST PAIN, POSITIVE STRESS TEST Discharge Diagnosis: 1. chest pain with recent abnormal stress test. Heart catheterization performed 10/13/20 with mild coronary disease found (plaque buildup in arteries of heart). However, amount found not felt to be the cause of your pain. 2. question of heartburn/upper GI problem causing chest pain - to be determined. Activity: Per Instructions section Non-emergency contact: Primary Care Provider Call non-emergency contact if: you have any medication questions and your symptoms worsen Follow-up/Referrals: Quentin Alfred DO [Physician] - (we will set you up with an appointment with John WHITE in the near future ) Naomi Carroll PA-C [Primary Care Provider] - (see your primary provider within 1 week ) Diet: Heart Healthy Addtl Attending Provider Instructions: You were admitted to the hospital because of multiple episodes of night-time chest discomfort. This is in the setting of a recent stress test that was abnormal. Your blood work for the heart did NOT show evidence of heart attack. Your CAT scan of the lungs did NOT show evidence of blood clots or pneumonia. 2 COVID tests - one on 10/10 and the other on 10/[address] Dwight Li from [facility] Cardiology saw you in consult and performed a heart catheterization. This showed minor/mild blockages (plaque build-up) in several arteries but these were not felt to be the cause of your symptoms. There was a 70% blockage in a small branch vessel but it was not felt to be amenable to stenting/intervention. Dr Li recommended ongoing medical management - aspirin, cholesterol medication, blood pressure medication, etc. Following the heart catheterization we performed a gall bladder ultrasound to ensure gallstones were not causing your symptoms. The ultrasound did NOT show gallstones. Incidentally we found mild fatty liver. Perhaps severe reflux disease is causing your symptoms. We will need to refer you to gastroenterology (GI) for additional tests. Recommendations - 1. Start lipitor (atorvastatin) 20mg once daily for your cholesterol. Have your family doctor follow your lipid panels. 2. INCREASE your reflux medication to 40mg twice daily. 3. We will set you up with a dielectric press operator through [facility]. Appointment date/time to be determined. 4. See "activity recommendations after heart catheterization" for limitations following your heart cath today. 5. keep a log of ongoing symptoms. Write down the date and time of symptoms, what you had eaten that day, where the pain is, associated symptoms (hiccups, burping, belching, abdominal pain, nausea, vomiting, shortness of breath, etc). Return to [facility] if - * you have chest pain that persists and nothing relieves it * you have shortness of breath * you have any concerns about your right wrist from the heart catheterization * you have severe abdominal pain * any other concerns Feel better and it was a pleasure to meet you, -Dr Li Addtl Fire Control System Installer Provider Instructions: ACTIVITY RECOMMENDATIONS following your heart catheterization: It is common to feel weak and fatigue for a few days. * Do not drive or operate any motorized equipment for the next three days. * Limit stair usage (2 or 3 trips a day only) for the next three days. * Do not lift anything heavier than 10 pounds for the next three days especially with your right arm. * Do not engage in vigorous exercise or any sports for the next five days. * You may shower the day after your procedure, but do not immerse (take a tub bath) the area for three days. Cleanse the site gently with soap and water. SPECIAL CARE INSTRUCTIONS: * You may replace the pressure dressing or band-aid the morning after the procedure. * After your procedure, it is normal to have a small bruise or small lump at the site. Examine your site daily for any change in the bruise or lump, redness, swelling, drainage or numbness. Notify your doctor if any change. BLEEDING: * If there is a small amount of bleeding at the site, lie down and apply firm pressure with a clean cloth for ten minutes. When the bleeding stops, lie quietly keeping the procedure limb straight for six hours. Notify your doctor as soon as possible. * If the bleeding does not stop after ten minutes or if there is a large amount of bleeding or spurting, call 911 immediately. Continue to lie down and hold firm pressure until help arrives. SKIN IRRITATION: * You may experience some redness and/or swelling in the area where radiation was administered. If any skin irritation occurs, please contact your family physi choco. Pending Studies at Discharge: No Stand-Alone Forms: My [facility], Smoking Cessation Medications and DC Order Prescriptions: New atorvastatin [Lipitor] 20 mg tablet 20 mg PO DAILY Qty: 30 RF: 5 Continued hydroxyzine HCl 10 mg tablet 10 mg PO TID PRN (Reason: Anxiety) RF: 0 aspirin 81 mg Tablet,Delayed Release (Dr/Ec) 81 mg PO HS RF: 0 lisinopril 10 mg tablet 10 mg PO HS RF: 0 sertraline 50 mg Tablet 50 mg PO HS RF: 0 acebutolol 200 mg Capsule 200 mg PO BID RF: 0 elderberry fruit 200 mg Capsule 200 mg PO DAILY RF: 0 omeprazole 40 mg capsule,delayed release(DR/EC) 40 mg PO BID Qty: 60 RF: 0 Changed cholecalciferol (vitamin D3) [Vitamin D3] 10 mcg (400 unit) Capsule 10 mcg PO DAILY Qty: 0 RF: 0 Discharge Orders: Discharge Order (Routine); Ordered 10/13/20 Ordered By: Keegan Ellis/Other Patient Handouts: Having Cardiac Catheterization, Atorvastatin tablets Admission Data Admit Date/Time: 10/12/20 15:24 Attending Provider: Keegan Li Admit Provider: Yoandy Hicks Primary Care Provider: Naomi Carroll Other Providers: Yoandy Hicks ; Balaji Li Other Interventions: Discharge Summary Assessment (RN) Last Done: 10/13/20 18:04 Coding Level of Care Code 21486 OBS Care - Discharge Diagnoses Chest pain R07.9 CAD (coronary artery disease) I25.10 Essential (primary) hypertension I10 Mixed hyperlipidemia E78.2
[2020-10-13] MEDS ORDERED: NON-FORMULARY MEDICATION (Omeprazole 40 mg capsule,delayed release(DR/EC)) PO SCH (21:00)
== END 2020-10-13 18:49 | disposition home or self-care (01) ==
LOC: 2N 09:43 → ED 09:43 → SUATTDRO 15:24 → 2N 17:21 → 2S 10-13 09:52

== ENCOUNTER 2024-02-06 09:02 | Observation (INO) ==
--- NOTE | 2024-01-01 10:44 | PAT Medication Instructions ---
Medication Instructions Date of Service January 01, 2024 Home Medications Medication Instructions Recorded gabapentin 100 mg capsule 100 mg PO TID PRN neuralgia #45 10/31/21 (Neurontin) caps sertraline 50 mg tablet 50 mg PO HS #30 tabs 06/16/23 hydroxyzine HCl 10 mg tablet 10 mg PO TID PRN Anxiety #90 tabs 06/30/23 lisinopril 10 mg tablet 10 mg PO HS #90 tabs 08/13/23 pantoprazole 40 mg tablet,delayed 40 mg PO QAM #90 tabs 08/13/23 release albuterol sulfate 1.25 mg/3 mL 1.25 mg (3 mL) inhalation QID PRN 10/20/23 solution for nebulization shortness of breath or wheezing #75 mL famotidine 20 mg tablet (Pepcid) 20 mg PO BID #60 tabs 12/25/23 aspirin 81 mg tablet,delayed release 81 mg PO HS gabapentin 100 mg capsule (Neurontin) 100 mg PO TID PRN neuralgia sertraline 50 mg tablet 50 mg PO HS hydroxyzine HCl 10 mg tablet 10 mg PO TID PRN Anxiety lisinopril 10 mg tablet 10 mg PO HS pantoprazole 40 mg tablet,delayed release 40 mg PO QAM ibuprofen 200 mg tablet 600 - 800 mg PO Q6H PRN Pain albuterol sulfate 1.25 mg/3 mL solution for nebulization 1.25 mg (3 mL) inhalation QID PRN shortness of breath or wheezing amlodipine 5 mg tablet 5 mg PO QAM meloxicam 15 mg tablet 15 mg PO QAM pravastatin 10 mg tablet 10 mg PO HS famotidine 20 mg tablet (Pepcid) 20 mg PO BID ASK your surgeon for instructions ibuprofen 200 mg tablet 600 - 800 mg PO Q6H PRN Pain meloxicam 15 mg tablet 15 mg PO QAM ASK your prescriber and surgeon aspirin 81 mg tablet,delayed release 81 mg PO HS DO NOT take the morning of surgery hydroxyzine HCl 10 mg tablet 10 mg PO TID PRN Anxiety Take morning of surgery With a small sip of water, OTHERWISE NOTHING TO EAT OR DRINK AFTER MIDNIGHT: gabapentin 100 mg capsule (Neurontin) 100 mg PO TID PRN neuralgia (if needed) pantoprazole 40 mg tablet,delayed release 40 mg PO QAM albuterol sulfate 1.25 mg/3 mL solution for nebulization 1.25 mg (3 mL) inhalation QID PRN shortness of breath or wheezing (use if needed; please bring rescue inhaler with you to hospital day of surgery if possible) amlodipine 5 mg tablet 5 mg PO QAM famotidine 20 mg tablet (Pepcid) 20 mg PO BID Take evening before surgery gabapentin 100 mg capsule (Neurontin) 100 mg PO TID PRN neuralgia (if needed) sertraline 50 mg tablet 50 mg PO HS hydroxyzine HCl 10 mg tablet 10 mg PO TID PRN Anxiety (if needed) lisinopril 10 mg tablet 10 mg PO HS albuterol sulfate 1.25 mg/3 mL solution for nebulization 1.25 mg (3 mL) inhalation QID PRN shortness of breath or wheezing (if needed) pravastatin 10 mg tablet 10 mg PO HS famotidine 20 mg tablet (Pepcid) 20 mg PO BID Other Notes If you have any questions please call us at [phone] or [phone] or [phone] or [phone]
--- NOTE | 2024-01-09 14:26 | Anesthesiology Consultation ---
Date of Service January 09, 2024 Assessment & Plan (1) Encounter for pre-operative examination: - awaiting [place] cardiology response to workload note. - Case discussed in detail with Dr. Robison who advised sending note to cardiology requesting clearance notation. General message left requesting return call for patient, surgeon's office made aware. - cardiology office visit [place] 10/23/23: "...09/03/23 when the patient described a burning sensation in her lower chest which radiated to the left lateral thorax and she also noticed some numbness and tingling of her left ear and face which was not consistently present with her burning chest discomfort...These symptoms usually were most likely to occur at rest and were not worsened by exertion...reviewed her Abnormal Stress Echocardiogram dated 08/29/23 in detail -- and it is very similar to her previous Abnormal Stress Echocardiogram dated 10/12/20 except she exercised for 3 seconds longer on her most recent stress echo prior to undergoing cardiac catheterization -- so I do not think that she has had significant progression of the major epicardial coronary artery as she did not have any regional wall motion abnormalities on this most recent stress echocardiogram. We discussed options for management vs further invasive workup. As her symptoms were atypical, her abnormal stress test 08/29/23 appears the same as it did on 10/12/20 prior to cardiac catheterization (which demonstrated branch vessel disease) -- I think a very reasonable approach is to add Amlodipine 5 mg daily as an antianginal and to lower her blood pressure and to start her on a statin medication. After starting on medications patient had complete resolution her chest pain. Additionally her BP appears to be controlled..." Patient denies any recurrence of chest discomfort. - Pt is having a facial skin lesion biopsied 01/14/24- sent to surgeon's office; pt is aware to call if area is not healed by orthopedic surgery date from anesthesia standpoint; otherwise determination is to Dr. Real. - Outpatient joint assessment: Patient is currently scheduled for inpatient pathway. Per discussion with Dr. Robison, if re-evaluated and patient/surgeon requests outpatient pathway, patient is acceptable candidate for outpatient joint program from anesthesia standpoint pending cardiology clearance and surgeon's office assessment of pt motivation/support/completion of same day joint program preop requirements. Chart Review Chart Review: Pending: Refer to Additional Notes / Consult section and Patient seen in Pre Admission Testing Teaching & Discussion Pre-Anesthesia Teaching/Discussion Notes: Instructed NPO after midnight before surgery, except medications with 15 cc of water. Medication instructions provided according to the PAT guidelines. History Surgery Operation Date: 02/06/24 12:00 Proposed Procedures p Right Total Knee Arthroplasty - Spenser Real, Height/Weight Height: 5 ft 7 in Weight: 97.9 kg Allergies Allergy/AdvReac Type Severity Reaction Status Date / Time metoprolol Allergy Severe Throat Verified 12/24/23 14:43 tight, itchy, hives moxifloxacin [From Avelox] Allergy Severe Throat Verified 12/24/23 14:43 tight, itchy, hives Medications Home Medications Medication Instructions Recorded Confirmed Last Taken aspirin 81 mg tablet,delayed 81 mg PO HS 10/10/20 12/24/23 08/08/23 release gabapentin 100 mg capsule 100 mg PO TID PRN neuralgia #45 10/31/21 12/24/23 11/20/21 08:00 (Neurontin) caps sertraline 50 mg tablet 50 mg PO HS #30 tabs 06/16/23 12/24/23 08/08/23 hydroxyzine HCl 10 mg tablet 10 mg PO TID PRN Anxiety #90 tabs 06/30/23 12/24/23 Unknown lisinopril 10 mg tablet 10 mg PO HS #90 tabs 08/13/23 12/24/23 Unknown pantoprazole 40 mg tablet,delayed 40 mg PO QAM #90 tabs 08/13/23 12/24/23 Unknown release ibuprofen 200 mg tablet 600 - 800 mg PO Q6H PRN Pain 10/08/23 12/24/23 Unknown albuterol sulfate 1.25 mg/3 mL 1.25 mg (3 mL) inhalation QID PRN 10/20/23 12/24/23 Unknown solution for nebulization shortness of breath or wheezing #75 mL amlodipine 5 mg tablet 5 mg PO QAM 12/24/23 12/24/23 Unknown meloxicam 15 mg tablet 15 mg PO QAM 12/24/23 12/24/23 Unknown pravastatin 10 mg tablet 10 mg PO HS 12/24/23 12/24/23 Unknown famotidine 20 mg tablet (Pepcid) 20 mg PO BID #60 tabs 12/25/23 Unknown Past Medical History Medical History Anxiety and depression CAD (coronary artery disease) Non-obstructive Chronic back pain Degenerative disc disease Esophageal dysphagia hx - no recent issues GERD (gastroesophageal reflux disease) controlled, stable per pt History of COVID-19 x3 (last episode July 2022) treated at [facility] - resolved. HTN (hypertension) controlled, stable per pt Hx of diverticulitis of colon (~2022) Hyperlipidemia PVCs (premature ventricular contractions) Temporomandibular joint disorder jaw locks, last ~october 2023 - happens at night, unlocks with cold compress and massage. Patient denies h/o stroke, seizures, heart attack, heart failure, blood clots/DVTs or blood transfusions. Exercise / Class Metabolic Activity III < 4 Walking/Shop/Light housework (denies chest discomfort or shortness of breath with one flight of stairs) Past Family History Family History Father Heart disease Myocardial infarction Psoriasis Mother Heart disease S/P CABG x 3 Daughter Multiple sclerosis Brother Coronary heart disease Myocardial infarction Other No family history of adverse response to anesthesia Denies family history of Ovarian cancer Prostate cancer Breast cancer Colorectal cancer Past Surgical History Surgical History H/O colonoscopy H/O: hysterectomy (1994) with BSO History of (1992) History of esophagogastroduodenoscopy (EGD) Hx laparoscopic cholecystectomy (11/21/21) Robotic Assisted Laparoscopic Cholecystectomy - Lee Dial DO, FACS 11/21/2021 S/P cardiac catheterization (10/12/20) ~2020 - no stents S/P carpal tunnel release RT Past Anesthesia History No Hx of Anesthesia Complications and No Family Hx of Anesthesia Complications History of PONV No Hx of PONV and Hx of Motion Sickness Social History Smoking Status: Former smoker tobacco type: cigarettes Do You Dip or Chew Tobacco: No Smoking End Date: ~2008 Hx Alcohol Use: Yes Alcohol type: beer and wine alcohol intake frequency: a few times a month Hx Substance Use: No substance use type: does not use Review of Systems Snoring, denies witnessed apneas. Patient denies chest pain, shortness of breath, dyspnea on exertion, fever, chills, cough, wheezing, or palpitations. Physical Exam Vital Signs Vitals BP 108/60 P 72 TEMP 98.6 SP02 96% on RA RESP 17 Physical Patient resting comfortably in chair in no acute distress, alert and oriented, responding appropriately throughout visit Full cervical extension range of motion without pain TMD 3.5 finger breadths Mallampati Score 3 Dentition: several removable partials, denies chipped or loose teeth, caps/crowns, implants or bridges Lungs: normal respiratory effort. Good air movement, clear throughout to auscultation, no adventitious breath sounds Cardiac: regular rate and rhythm, no murmurs noted Carotid arteries: negative bruit bilat Lab Results Anesthesia Preop Results Results Anesthesia Widget: WBC 5.61 K/ul (4.8-10.8) 01/09/24 Hgb 12.7 g/dl (12.0-16.0) 01/09/24 Hct 38.6 % (37.0-47.0) 01/09/24 Plt 216 K/uL (130-400) 01/09/24 Na 139 mmol/L (136-145) 01/09/24 K 3.5 mmol/L (3.5-5.1) 01/09/24 Cl 107 mmol/L (98-107) 01/09/24 CO2 24 mmol/L (21-32) 01/09/24 BUN 10 mg/dl (6-23) 01/09/24 Creat 0.76 mg/dl (0.6-1.2) 01/09/24 Glucose Level 140 mg/dl (70-99(Fasting)) H 01/09/24 PT 9.9 Seconds (9.0-12.0) 01/09/24 PTT 26 Seconds (21-31) 01/09/24 INR 0.9 (0.9-1.1) 01/09/24 Blood Type O Positive 01/09/24 Antibody Screen NEGATIVE 01/09/24 Testing Electrocardiogram Date: 08/09/23 NSR, rate 69 bpm Chest X-Ray Date: 08/09/23 *1view* No acute cardiopulmonary findings. Stress Test Date: 08/29/23 Exercise METS 7.4 MPHR 82% Abnormal exercise echo with poor augmentation of LV function at peak exertion EF 60-65% Stage II diastolic dysfunction No significant valvular heart disease Cardiac Catheterization Date: 10/13/20 Left main: Left main coronary artery is normal in size and caliber. It trifurcate into the left anterior descending, left circumflex and a ramus intermedius branch. There is no significant disease in this distribution. Left anterior descending: Left anterior descending was a normal sized artery. It produced a medium size 1st diagonal and several additional smaller diagonal branches. There was approximately 70% discrete stenosis in the midportion of the 1st diagonal. There was some luminal regularities and perhaps 20% stenosis of the LAD just distal to the 1st diagonal branch. No other obstructive lesions in this distribution Ramus intermedius. The ramus intermedius was a medium size vessel without obstructive disease Left circumflex: Left circumflex was a nondominant vessel. It produced a single large OM system. There were luminal irregularities but no discrete lesions in this vessel. Right coronary artery: The right coronary artery was a normal-sized dominant vessel. Had approximately 20% stenosis in its midportion. There were no other obstructive lesions. Medical management aggressive risk factor modification for branch vessel disease Other Testing Cardiac event monitor 08/29/23 Sinus rhythm HR: min 45, avg 74 and max 119 bpm Very rare atrial and ventricular ectopy Very rare and brief episodes of SVT lasting a few beats 2 episodes of dizziness were reported, did not correlate with arrhythmia Chest CTA 08/09/23 1. No pulmonary emboli identified. 2. No acute intrathoracic findings.
--- NOTE | 2024-02-05 14:43 | History & Physical Report ---
Date of Service February 05, 2024 Assessment & Plan (1) Right knee DJD: We will proceed with a right total knee arthroplasty. Postoperatively she will be started on aspirin for DVT prophylaxis and kept overnight in the hospital for postop medical management. She plans to have the hospital set up home health upon discharge. History of Present Illness Chief Complaint: Osteoarthritis of the right knee. Primary Care Provider: Cristina De La GarzaDO Londono is a pleasant 63-year-old female who has been dealing with chronic increasing right knee pain. She has been treated up in the [facility]. She has had multiple injections of her knee. Unfortunately, the injections are not beneficial. She has trouble walking long distances. All of her pain is located medially. X-rays and clinical examination been diagnostic for worsening osteoarthritis of the right knee. After failing conservative treatment, she has elected proceed with a right total knee arthroplasty. . Allergies Allergy/AdvReac Type Severity Reaction Status Date / Time metoprolol Allergy Severe Throat Verified 12/24/23 14:43 tight, itchy, hives moxifloxacin [From Avelox] Allergy Severe Throat Verified 12/24/23 14:43 tight, itchy, hives Home Medications Medication Instructions Recorded Confirmed Type aspirin 81 mg tablet,delayed 81 mg PO HS 10/10/20 12/24/23 History release gabapentin 100 mg capsule 100 mg PO TID PRN neuralgia #45 10/31/21 12/24/23 Rx (Neurontin) caps sertraline 50 mg tablet 50 mg PO HS #30 tabs 06/16/23 12/24/23 Rx hydroxyzine HCl 10 mg tablet 10 mg PO TID PRN Anxiety #90 tabs 06/30/23 12/24/23 Rx lisinopril 10 mg tablet 10 mg PO HS #90 tabs 08/13/23 12/24/23 Rx pantoprazole 40 mg tablet,delayed 40 mg PO QAM #90 tabs 08/13/23 12/24/23 Rx release ibuprofen 200 mg tablet 600 - 800 mg PO Q6H PRN Pain 10/08/23 12/24/23 History albuterol sulfate 1.25 mg/3 mL 1.25 mg (3 mL) inhalation QID PRN 10/20/23 12/24/23 Rx solution for nebulization shortness of breath or wheezing #75 mL amlodipine 5 mg tablet 5 mg PO QAM 12/24/23 12/24/23 History meloxicam 15 mg tablet 15 mg PO QAM 12/24/23 12/24/23 History pravastatin 10 mg tablet 10 mg PO HS 12/24/23 12/24/23 History famotidine 20 mg tablet (Pepcid) 20 mg PO BID #60 tabs 12/25/23 Rx Past Med/Surg History Problem List Non-healing skin lesion Right knee DJD Lumbar radiculopathy Obesity Vitamin D deficiency Mixed hyperlipidemia Facet arthropathy, cervical Psoriasis Essential (primary) hypertension Medical History Esophageal dysphagia hx - no recent issues Degenerative disc disease Chronic back pain Temporomandibular joint disorder jaw locks, last ~october 2023 - happens at night, unlocks with cold compress and massage. History of COVID-19 x3 (last episode July 2022) treated at [facility] - resolved. Hx of diverticulitis of colon (~2022) Anxiety and depression GERD (gastroesophageal reflux disease) controlled, stable per pt CAD (coronary artery disease) Non-obstructive PVCs (premature ventricular contractions) Hyperlipidemia HTN (hypertension) controlled, stable per pt Surgical History History of esophagogastroduodenoscopy (EGD) Hx laparoscopic cholecystectomy (11/21/21) Robotic Assisted Laparoscopic Cholecystectomy - Lee Dial DO, FACS 11/21/2021 H/O colonoscopy S/P carpal tunnel release RT S/P cardiac catheterization (10/12/20) ~2020 - no stents H/O: hysterectomy (1994) with BSO History of (1992) Family History Father Heart disease Myocardial infarction Psoriasis Mother Heart disease S/P CABG x 3 Daughter Multiple sclerosis Brother Coronary heart disease Myocardial infarction Other No family history of adverse response to anesthesia Denies family history of Ovarian cancer Prostate cancer Breast cancer Colorectal cancer Social History Smoking Status: Former smoker Tobacco Type: Cigarettes Age Started Using Tobacco: 17; Age Quit Using Tobacco: 49; packs per day: 1.5; Smoking End Date: ~2008; Second Hand Exposure: No; Do You Dip or Chew Tobacco: No; Tobacco Cessation Education Requested by Patient: No Hx Alcohol Use: Yes Alcohol type: beer and wine Alcohol Intake Frequency: 2-4 x/Month Hx Substance Use: No Preferred Language: Palestinian Communication Ability: Effective Hearing Ability: Normal Sharemilker Required: No Beliefs That Will Affect Care: None marital status: Single Current Living Situation: Family and Significant Other Current Living Situation Comment: BOYFRIEND AND 2 GRANDCHILDREN current occupational status: employed current occupation: Electro Mechanical Engineer How many Children do You have: 3 How many Children do You have Comment: 2 daughters and a son Other Information That Helps Us Care for You: No Feels Safe at Home: Yes Safety Concerns: Feels Safe At This Time Childhood Exposure to Second-Hand Smoke: No Diet: regular caffeine: Yes (cup of coffee in am ) during the past year weight has: remained stable Dental Care, Regularly: Yes Physical Activity Frequency: 5-6 Times per Week Seatbelt Use: always Sunscreen Use: Yes Assistive Devices: Contacts and Glasses Assistive Devices Comment: upper and lower partial Review of Systems All systems reviewed & are unremarkable except as noted in HPI & below. Physical Exam On physical examination of the right knee, she has decreased range of motion from 5 to 115 degrees. She is slight varus deformity. Tenderness palpation of the distal medial femoral condyle.. Constitutional WD/WN, vitals as above Eyes PERRL, conjunctivae normal, anicteric sclerae ENMT external ear and nose normal, oropharynx normal Neck trachea midline, no thyromegaly Respiratory normal respiratory effort Cardiovascular RRR, no murmur, no edema Gastrointestinal (Abdomen) normal bowel sounds, soft, nontender, no hepatosplenomegaly Psychiatric A+Ox3, euthymic affect Results & Data Results & Data Laboratory Results . Diagnostic Findings X-rays of the right knee show advanced osteoarthritis with joint space narrowing, osteophyte formation, and [id number] articulation.. PG Care Time/CCT Total # of Minutes Spent Total Time Spent with Patient: Total time spent is greater than 50% in coordination of care (as documented) at patient's floor/unit and/or counseling patient: Coding Level of Care Code None Diagnoses Right knee DJD M17.11
[~2024-02-06 09:02] MED LIST: BUPIVACAINE 0.5 % 5 MG/1 ML PF 10ML VIAL ONE; ROPIVACAINE 0.5% 5 MG/ML 30 ML VIAL ONE
[2024-02-06] MEDS: LR 500ML BOLUS, THEN 15ML/HR IV SCH (09:44)
[2024-02-06] MEDS: dexAMETHasone**PF** 10 MG/ML VIAL IV SCH (09:44)
[2024-02-06] MEDS: ACETAMINOPHEN 500 MG TAB PO SCH (09:44)
[2024-02-06] MEDS: GABAPENTIN 600 MG DOSE PO SCH (09:45)
[2024-02-06] MEDS: LR 60ML/HR IV SCH (09:45)
[2024-02-06] MEDS: FAMOTIDINE 20 MG TAB PO SCH ×2 (09:45→21:42)
[2024-02-06] MEDS ORDERED: MIDAZOLAM HCL 1 MG/ML 2ML VIAL ONE (09:54)
[2024-02-06] MEDS ORDERED: fentaNYL citrate PF 100 MCG/2 ML VIAL ONE (09:54)
[2024-02-06] MEDS ORDERED: PROPOFOL IV EMULSION 10 MG/ML 20 ML VIAL IV ONE ×2 (09:54→12:38)
--- NOTE | 2024-02-06 10:30 | History & Physical Bridge Note ---
Date of Service February 06, 2024 History & Physical Bridge Note I have examined the patient, reviewed the History & Physical and in the interval since the performance of the History & Physical I have noted the following changes of clinical significance: no changes noted
[2024-02-06] MEDS ORDERED: ePHEDrine sulfate 50 MG/ML AMP IV PRN (10:56)
[2024-02-06] MEDS ORDERED: ATROPINE SULFATE 0.1 MG/ML 10ML SYR IV PRN (10:56)
[2024-02-06] MEDS ORDERED: fentaNYL citrate PF 100 MCG/2 ML VIAL IV PRN (10:56)
[2024-02-06] MEDS: TRANEXAMIC ACID 1,000 MG **IV Pre-op IV SCH (11:10)
[2024-02-06] MEDS: ceFAZolin 2000MG 2,000 MG/15 ML SYR IV SCH ×2 (11:26→21:34)
[2024-02-06] MEDS ORDERED: PHENYLEPHRINE 100MCG/ML 10ML SYR IV ONE (11:42)
[2024-02-06] MEDS: ORTHO JOINT ANESTHETIC ONE (12:09)
[2024-02-06] MEDS ORDERED: ePHEDrine sulfate 50 MG/5 ML SYR ONE (12:18)
[2024-02-06] MEDS ORDERED: KETOROLAC 30 MG/ML VIAL ONE (12:22)
[2024-02-06] MEDS ORDERED: ONDANSETRON INJ 2 MG/ML 2 ML VIAL ONE (12:22)
[2024-02-06] MEDS: ROPIV 0.5% 246mg, Ketorolac 30mg, EPINEPHrine 0.5mg in NSS INFIL SCH (12:25)
[2024-02-06] MEDS: TRANEXAMIC ACID 1,000 MG **IV Intra-op IV SCH (12:30)
--- NOTE | 2024-02-06 12:50 | Operative Report ---
PG Post Operative Report Pre & Post Diagnosis Operation Date: 02/06/24 11:00 Pre-Op Diagnosis: Right Knee Degenerative Joint Disease Post-Op Diagnosis: Right Knee Degenerative Joint Disease I identified the patient and participated in the time-out.: Yes Procedure Operation Date: 02/06/24 11:00 Actual Procedures p Right Total Knee Arthroplasty(Right) - Spenser Real DO Surgeon Spenser Real DO Director Of Engineering None Estimated Blood Loss 30 Findings Consistent with Post-Op Diagnosis Specimens Right femoral and tibial bone Description of Procedure Implants used: I used a Fab Persona total knee arthroplasty system with a size 7 femur, D tibia, 31 oval patella, and a size 14 medial congruent polyethylene bearing. All components were cemented in place with Biomet cement. Bry arrived [facility] for the above procedure. She was seen in the preoperative holding area and the operative extremity was identified and signed. She was given a preoperative antibiotic, TXA, a spinal anesthetic and an adductor nerve block. She was taken back to the operating room and laid on the table in supine position. She was given basic sedation. The operative knee was then prepped and draped in sterile fashion. A timeout was done, and the patient and the operative extremity was properly identified. A midline incision was made directly over the patella. Dissection was taken down to the extensor mechanism. A medial parapatellar arthrotomy was used. The medial retinaculum was released and the fat pad was mostly excised. The knee was flexed and the ACL, PCL, and meniscus were removed. A drill was sent down the center of the femoral canal followed by an intramedullary cathy. Off that cathy a distal femoral cutting block was placed. 9 mm was resected off the distal femur at 5 of valgus. A posterior referencing AP sizing guide was then placed on the distal femur. The femur measured to be a size 7. 2 drill holes were placed in 3 of external rotation. A 4-in-1 cutting block was then impacted into place. Anterior, posterior, and chamfer cuts were then made. The proximal tibia was then exposed. An external tibial alignment guide was placed. A tibial cut guide was then anchored in place and the proximal tibia was then resected. The posterior aspect of the knee was then opened up and any additional meniscus fragments and osteophytes were removed. The tibia measured to be a size D. The tibial plate was then placed in the appropriate rotation and the tibia was drilled and punched. Trial components were then placed. I used a size 14 medial congruent polyethylene insert. The knee was brought through a full range of motion and felt to be stable. The peg holes for the femoral component were then drilled. The patella was then everted and 9 mm was resected off the posterior aspect of the patella. The patella measured to be a size 31 oval. 3 peg holes were then drilled. A trial patella was placed. The knee was once again brought through a full range of motion and felt to be stable. Trial components were then removed. The surrounding soft tissues were injected with 100 cc of an orthopedic pain control cocktail. All components were then cemented into place with Biomet cement. The final polyethylene insert was then snapped into place. Once cement was dry the tourniquet was deflated. Hemostasis was obtained. A dilute betadyne lavage was then done for 3 minutes. The joint was then irrigated with normal saline solution. The medial parapatellar arthrotomy was then closed with #1 Vicryl suture. The skin was closed with 2-0 Vicryl, 3-0V lock suture, and swapna. A soft compressive dressing was placed. She was then transferred to a hospital bed and taken to the postanesthesia care unit in stable condition. She tolerated the procedure well. I attest to the content of the Intraoperative Record and any orders documented therein. Any exceptions are noted below.
--- NOTE | 2024-02-06 13:27 | XRay Report ---
XR knee RT 1 or 2V routine HISTORY: 63 years-old Female Surgical Post Op right knee arthroplasty COMPARISON: Radiographs 10/16/2023 TECHNIQUE: 2 views of the right knee FINDINGS: Total joint arthroplasty with patellar resurfacing. Anterior midline skin swapna with expected posto perative soft tissue swelling and deep tissue air. No acute fracture or unexpected opaque foreign bod y. IMPRESSION: Total joint arthroplasty with expected postoperative changes. ACT 112: Negative or not required by law. The above report was generated using voice recognition software. It may contain grammatical, syntax o r spelling errors. Electronically signed by: Steve Duncan M.D. 02/06/2024 1:26 PM
--- NOTE | 2024-02-06 13:46 | Anesthesiology Progress Note ---
Date of Service February 06, 2024 Anesthesia Post Procedure Vital Signs Vital Signs: Temp Pulse Pulse Resp BP Pulse Ox O2 Del Method 02/06/24 13:40 77 12 104/77 96 Room Air 02/06/24 13:30 36.3 C L 81 20 103/71 92 Room Air 02/06/24 13:20 76 12 103/61 93 Room Air 02/06/24 13:10 78 13 92/65 L 94 Room Air 02/06/24 13:03 36.3 C L 88 14 95/67 L 95 Room Air 02/06/24 09:52 36.6 C 64 20 128/78 97 Room Air Transfer of Care Handoff Completed per policy Notes Mental Status: alert / awake / arousable Patient Amnestic to Procedure: Yes Nausea / Vomiting: adequately controlled Pain: adequately controlled Airway Patency, RR, SpO2: stable & adequate BP & HR: stable & adequate Hydration State: stable & adequate Neuraxial Anesthesia: was administered and sensory block is resolving Anesthetic Complications: no major complications apparent
[2024-02-06] MEDS ORDERED: NALOXONE HCL 0.4 MG/1 ML VIAL/CARP IV PRN (13:53)
[2024-02-06] MEDS ORDERED: oxyCODONE HCL IR 5 MG TAB (IMMEDIATE RELEASE) PO PRN (13:53)
[2024-02-06] MEDS ORDERED: MAGNESIUM HYDROXIDE SUSP 30 ML UDC PO PRN (13:53)
[2024-02-06] MEDS ORDERED: ONDANSETRON INJ 2 MG/ML 2 ML VIAL IV PRN (13:53)
[2024-02-06] MEDS ORDERED: HYDROmorphone INJ 0.5 MG/0.5 ML SYR IV PRN (13:53)
[2024-02-06] MEDS ORDERED: GABAPENTIN 100 MG CAP PO PRN (13:53)
[2024-02-06] MEDS ORDERED: bisacodyL 10 MG SUPP PR PRN (13:53)
[2024-02-06] MEDS ORDERED: ALBUTEROL 0.5% NEB SOLN 2.5 MG/0.5 ML VIAL INH PRN (14:01)
[2024-02-06] MEDS: METOCLOPRAMIDE HCL INJ 5 MG/ML 2 ML VIAL IV PRN (14:17)
[2024-02-06] MEDS: SODIUM CHLORIDE 0.9% 1,000 ML IV SCH (14:22)
[2024-02-06] MEDS: KETOROLAC 30 MG/ML VIAL IV SCH (17:55)
[2024-02-06] MEDS: SERTRALINE HCL 50 MG TABLET PO SCH (21:39)
[2024-02-06] MEDS: PRAVASTATIN SOD 10 MG TAB PO SCH (21:41)
[2024-02-06] MEDS: DOCUSATE SODIUM 100 MG CAP PO SCH (21:41)
[2024-02-06] MEDS: SENNA 8.6 MG TAB PO SCH (21:41)
[2024-02-06] MEDS: ASPIRIN 81 MG ECTAB PO SCH (21:41)
[2024-02-06] MEDS: lisinopril 10 MG TAB PO SCH (21:42)
[2024-02-06] MEDS: hydrOXYzine HCl 10 MG TAB PO PRN (21:54)
--- NOTE | 2024-02-07 08:42 | Orthopedic Progress Note ---
Date of Service February 07, 2024 Assessment & Plan (1) Status post right knee replacement: Overall she is doing well. She is not having much pain in the right knee. She will be seen by physical therapy today for ambulation and range of motion exercises. The nursing staff can change her dressing after physical therapy. She is on aspirin for DVT prophylaxis. She can be discharged home later today. She will follow-up orthopedics in 2 weeks. Denisha Londono was seen and examined at bedside this morning. Overall she is doing well. She is not having much pain in the right knee. She has been up and ambulating to the bathroom. She has no complaints.. Review of Systems All systems reviewed & are unremarkable except as noted in HPI & below. Physical Exam On physical examination the right knee, the dressing is clean and dry. Her leg is out full extension. She has active dorsiflexion plantarflexion of the right ankle.. Results & Data Results & Data Laboratory Results . Diagnostic Findings Postoperative x-rays of the right knee show the prosthesis to be in anatomic alignment without any evidence of fracture complication, or loosening.. PG Care Time/CCT Total # of Minutes Spent Total Time Spent with Patient: Total time spent is greater than 50% in coordination of care (as documented) at patient's floor/unit and/or counseling patient: Coding Level of Care Code 11362 Post Operative Follow-Up Diagnoses Status post right knee replacement Z96.651
--- NOTE | 2024-02-07 08:43 | Discharge Summary ---
Date of Service February 07, 2024 Admission HPI (Per Admitting) Bry is a pleasant 63-year-old female who has been dealing with chronic increasing right knee pain. She has been treated up in the [facility]. She has had multiple injections of her knee. Unfortunately, the injections are not beneficial. She has trouble walking long distances. All of her pain is located medially. X-rays and clinical examination been diagnostic for worsening osteoarthritis of the right knee. After failing conservative treatment, she has elected proceed with a right total knee arthroplasty. . Admission Exam (Per Admitting) On physical examination of the right knee, she has decreased range of motion from 5 to 115 degrees. She is slight varus deformity. Tenderness palpation of the distal medial femoral condyle.. Principal Diagnosis Same as "Discharge Diagnosis" noted below under Discharge Instructions. Discharge Exam On physical examination the right knee, the dressing is clean and dry. Her leg is out full extension. She has active dorsiflexion plantarflexion of the right ankle.. Discharge Data Procedures Performed Operation Date: 02/06/24 11:00 Actual Procedures p Right Total Knee Arthroplasty(Right) - Spenser Real DO Ordered Studies 02/06/24 05:00 US - OR guided needle placemen Routine Hospital Course (1) Status post right knee replacement: On February 06, [address] [facility] and underwent a right knee replacement without complication. She had a spinal anesthetic. Po stoperatively she was started on aspirin for DVT prophylaxis and transferred to the general orthopedic floors. Her hospital course was uneventful. On postop day #1, her vital signs were stable and her pain was well-controlled. She was able to participate well with physical therapy doing ambulation and range of motion exercises. She was then discharged home. She will follow-up with orthopedics in 2 weeks.. PG Care Time/CCT Total # of Minutes Spent Total Time Spent with Patient: Total time spent is greater than 50% in coordination of care (as documented) at patient's floor/unit and/or counseling patient: Discharge Plan Discharge Items Patient Disposition: Home - Self-Care Reason For Visit: Degenerative Joint Disease Right Knee Discharge Diagnosis: Right knee replacement Activity: Per Instructions section Non-emergency contact: Surgeon Call non-emergency contact if: your wound has increased redness and your wound has increased drainage Follow-up/Referrals: Cristina De La Garza DO [Primary Care Provider] - Diet: Regular Addtl Attending Provider Instructions: Activity and Therapy Recommendations: * If you are using [facility] then therapy will be provided at your home until they feel you have accomplished all of your goals. * If you are using [facility] then Physical Therapy will be provided until they feel you are ready to start Outpatient Physical Therapy. * If you are not using home therapy then Outpatient Physical Therapy should start about 3-5 days from your day of surgery. Therapy will last about 6-10 weeks * It is important not to put a pillow under your knee when you are relaxing or sleeping. It is just as important to make sure you are getting your knee perfectly straight as it is to regain your knee bend. * You were shown a series of exercises in the hospital. Do these exercises three times each day including the exercises you were shown in physical therapy. * Get up and walk several times each day. For the first four weeks, try not to stand or walk for more than one hour at a time. If you do stand or walk for more than one hour, you will not hurt anything, but your leg will likely swell. * As you feel comfortable, you may change from the walker or crutches to a cane and then to independent walking. Medications: * Narcotic You will likely be sent home from the hospital with a prescription for the narcotic pain medication that worked best throughout your stay. * Cefadroxil -take the antibiotic twice a day for 10 days to help prevent infection. * Aspirin Most patients will be required to take Aspirin 81mg twice a day for 6 weeks after surgery. This is obtained [id number] and a prescription is not necessary. * Other medications may be prescribed for specific circumstances. If you have any questions, please call the office at . * Resume previous home medications unless otherwise instructed TEDs/Elastic Stockings: The white elastic stockings help limit swelling and prevent blood clots from forming in your legs.~ The more you wear them, the more they work. Wear them for six weeks. Dressing Care: The dressing can be changed after physical therapy on postop day #1. Daily dry dressing changes for a few days, especially if the incision is still draining some. If the incision is not draining then you may leave the swapna open to air. If there is a little bit of drainage or if the swapna are getting stuck on your clothing then cover the incision with a dry dressing. The swapna will be removed at your 2 week follow-up appointment. Showering: You may shower 5 days from the day of surgery as long as the incision is no longer draining. You may shower with the swapna exposed. Let soapy water run over the swapna and pat them dry. Do not scrub or soak the incision. Things To Watch For: * Drainage from the incision site that occurs more than one week after your surgery. * Increased redness at the incision site. * Fever above 102 degrees Fahrenheit. * Unusual chest pain or shortness of breath. * Call [facility] at with any of the above problem s Follow-Up Visit: Follow-up with Dr. Real's PA (Spenser Miller) 2-3 weeks after your day of surgery. He will remove your swapna and answer any questions. If you have any additional questions or concerns, Dr Real is usually in the office at the same time and will be available An appointment was probably scheduled when you signed-up for surgery in the office. If you have any questions call Office Instructions: More detailed instructions as well as Frequently Asked Questions were provided in a folder by our office when you signed-up for surgery. Please review these instructions when you get home. If you have any further questions or concerns, please feel free to call the office at [phone] Pending Studies at Discharge: No Stand-Alone Forms: My [facility], Smoking Cessation Medications and DC Order Prescriptions: New oxycodone 5 mg Tablet 5 mg PO Q4H PRN (Reason: pain) Qty: 30 0RF cefadroxil 500 mg capsule 500 mg PO BID 10 Days Qty: 20 0RF Continued gabapentin [Neurontin] 100 mg capsule 100 mg PO TID PRN (Reason: neuralgia) Qty: 45 1RF sertraline 50 mg tablet 50 mg PO HS Qty: 30 5RF hydroxyzine HCl 10 mg tablet 10 mg PO TID PRN (Reason: Anxiety) Qty: 90 3RF pantoprazole 40 mg tablet,delayed release (DR/EC) 40 mg PO QAM Qty: 90 1RF lisinopril 10 mg tablet 10 mg PO HS Qty: 90 1RF albuterol sulfate 1.25 mg/3 mL solution for nebulization 1.25 mg inhalation QID PRN (Reason: shortness of breath or wheezing) Qty: 75 1RF famotidine [Pepcid] 20 mg tablet 20 mg PO BID Qty: 60 5RF ibuprofen 200 mg tablet 600 - 800 mg PO Q6H PRN (Reason: Pain) meloxicam 15 mg tablet 15 mg PO QAM Rx Instructions: Take 1 tab daily for 2 weeks, then as needed amlodipine 5 mg tablet 5 mg PO QAM pravastatin 10 mg tablet 10 mg PO HS Changed aspirin 81 mg Tablet,Delayed Release (Dr/Ec) 81 mg PO BID 42 Days Qty: 0 0RF Discharge Orders: Discharge Order (Routine); Ordered 02/07/24 Ordered By: Spenser Real Admission Data Admit Date/Time: 02/06/24 12:54 Attending Provider: Spenser Real Admit Provider: Spenser Real Primary Care Provider: Cristina De La Garza
[2024-02-07] MEDS: PANTOprazole 40 MG TAB PO SCH (08:57)
[2024-02-07] MEDS: amLODIPine BESYLATE 5 MG TAB PO SCH (08:57)
[2024-02-07] MEDS: dexAMETHasone 4 MG TAB PO SCH (08:57)
[2024-02-07] MEDS: MULTIVITAMIN TAB PO SCH (08:57)
[2024-02-07] MEDS ORDERED: MELOXICAM 7.5 MG TAB PO SCH (18:00)
== END 2024-02-07 11:29 | disposition home health service (06) ==
LOC: 3E 09:02 → ASU 09:02